=== PATIENT | male | born 1960 | race Caucasian/White ===

== ENCOUNTER → 2016-08-05 | Outpatient (CLI) | payer MEDICARE ==
[~2016-08-05] MED LIST: AMBIEN5 MG; AMBIEN5 MG PO; ASPIRIN LO-DOSE81 MG PO; ATIVAN 0.5MG0.5 MG PO; BUPIVACAINE IL; COLACE100 MG PO; FENTANYL IL; FENTORA PO; HALDOL0.5 MG; HYDROMORPHONE IL; LASIX40 M1 PO; LASIX40 MG PO; LEVAQUIN500 MG PO; LIDOCAINE30 GM TOP; LIPITOR40 MG PO; LISINOPRIL20 MG PO; LOPRESSOR50 M1 PO; LOPRESSOR50 MG PO; MORPHINE; MS CONTIN30 MG PO; NORVASC10 MG PO; OXYCODONE HCL10 MG PO; OXYCODONE-ACET1 EACH PO; PAXIL10 MG PO; PERCOCET 5-3251 EACH PO; PERCOCET PO; PLAVIX75 MG PO; PRINIVIL20 MG PO; RANEXA1000 MG PO; SENNA S TABLET1 EACH PO; VALIUM5 MG; VALIUM5 MG PO; ZOFRAN4 M1 PO; ZOFRAN4 MG PO; ZOLPIDEM TARTRA10 MG PO; ZYPREXA5 MG PO
== END | disposition disaster alternative care site (69) ==
LOC: GRAD 14:30
DX: S72.001D Fracture of unspecified part of neck of right femur, subsequent encounter for closed fracture with routine healing (principal); S79.911D Unspecified injury of right hip, subsequent encounter; W19.XXXD Unspecified fall, subsequent encounter

== ENCOUNTER → 2017-02-16 | Outpatient (CLI) | payer MEDICARE | LOC: GKIC 02-04 12:00 | DX: C01 Malignant neoplasm of base of tongue (principal); I51.7 Cardiomegaly; C77.0 Secondary and unspecified malignant neoplasm of lymph nodes of head, face and neck | CPT/HCPCS: A9552 ==